=== PATIENT | female | born 1955 | race Caucasian/White ===

== ENCOUNTER 2020-07-19 08:44 | Day surgery (SDC) | payer BC ==
[~2020-07-19 08:44] MED LIST: LIDOCAINE 1%/EPINEPHRINE INJ 20 ML VIAL ONE; LIDOCAINE 2% INJ (20 MG/ML) 20 ML MDV ONE
--- NOTE | 2020-07-25 13:38 | WOMENS IMAGING REPORT ---
EXAM DESCRIPTION: STEREO BREAST BX; RIGHT DIAGNOSTIC MAMMO W/CAD IMAGES COMPLETED DATE/TIME: 07/19/2020 10:43 am; 07/19/2020 10:09 am REASON FOR STUDY: MAMMOGRAPHIC CALCIFCN FOUND ON DIAGNOSTIC IMAGING OF BREAST; RT BREAST POST BX R92 .1 MAMMOGRAPHIC CALCIFCN FOUND ON DIAGNOSTIC IMAGING OF B COMPARISON: 06/22/2020, 06/14/2020, 02/19/2017, 02/12/2016 TECHNIQUE: Vacuum-assisted stereotactic-guided biopsy of the lesion in the right breast. Serial prog ress stereotactic and single digital images acquired. PROCEDURE: The procedure was discussed with the patient, including possible complications such as bleeding, infection, nondiagnostic sample or possible findings such as atypical ductal hyperplasia wh ich would require additional surgery. Possible clip placement was explained. The patient agreed t o the procedure. The patient was placed prone on the stereotactic table. The lesion in the breast was localized ster eotactically. The skin of the breast was prepped in sterile fashion. Superficial and deep local an esthesia was provided. A small incision was made in the skin and the biopsy probe was advanced to t he target. Using the vacuum-assisted core biopsy device, multiple core specimens were obtained. Continuous low dose infusion of local anesthesia was used during the procedure. A specimen radiograph was obtained. The radiograph demonstrated calcifications in the biopsy tissue. Using [id number] technique a barrel clip was deployed at the biopsy site. Mammographic image confirmed presence of the clip. The probe was then removed and hemostasis obtained with manua l compression. A compression bandage was applied. Postoperative instructions were explained to th e patient. POST-PROCEDURE TWO VIEW DIGITAL MAMMOGRAM: An additional two view mammogram was recorded in the [facility]ographic [facility]. Marker clip is present at the biopsy site. LIMITATIONS: None. FINDINGS: PATHOLOGY: Benign breast tissue with fibrocystic changes and intraductal papilloma. Micro calcifications are present and associated with benign ducts. Negative for malignancy. CONCORDANT: Yes. POST PROCEDURE MAMMOGRAMS FOR MARKER PLACEMENT: Yes IMPRESSION: SUCCESSFUL STEREOTACTIC-GUIDED BIOPSY OF THE LESION IN THE RIGHT BREAST. BIOPSY RESULT S ARE CONCORDANT WITH IMAGING FINDINGS. FOLLOW-UP: PATIENT CAN RESUME ROUTINE SCREENING SCHEDULE DETERMINED BY HER AND HER PHP. NOTIFICATION: THE PATIENT'S PHP HAS BEEN NOTIFIED OF THE RESULTS. HE/SHE WILL DISCUSS THE RESULTS WIT H THE PATIENT AND SCHEDULE ADDITIONAL INTERVENTION NEEDED. COMMENT: Patient medication list reviewed: Yes- Quality ID# [id number]:Eligible professional attests to doc umenting in the medical record they obtained, updated, or reviewed the patient's current medications. TECHNICAL DOCUMENTATION: JOB ID: [id number] 2010 [employer]- All Rights Reserved Reading location - IP/workstation name: [email or web address]
== END 2020-07-19 11:00 | disposition home or self-care (01) ==
LOC: RAD 08:44 → EDBD 08:44 → RAD 11:00
PROVIDERS: ATTEND Surgery
DX: R92.1 Mammographic calcification found on diagnostic imaging of breast (principal)
CPT/HCPCS: 88305 ×2; 88342; 19081; 77065; J3490 ×2